=== PATIENT | male | born 1975 | race Caucasian/White ===

== ENCOUNTER → 2025-05-10 14:24 | Outpatient (BNVA) | payer SELFPAY | PROVIDERS: Visit Provider Emergency Medicine | DX: Z02.79 Encounter for issue of other medical certificate (principal) ==

== ENCOUNTER 2025-05-29 10:32 | Outpatient (AMB) | payer MEDICAID, SELFPAY ==
--- NOTE | 2025-05-29 10:39 | MHC.PC.OV ---
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 Intake Note: wants to discuss BP concerns Accompanied by: Self / Same As Patient Allergies No Known Allergies Allergy (Verified 05/29/25 10:39) Medication List - Last Reconciled 05/29/25 by Shaan Albright MD nifedipine ER 30 mg PO DAILY valsartan 320 mg PO DAILY Tobacco use date assessed: 05/29/25 Dental Screening Dental Screen Date: 05/29/25 Did you have a dental visit in the last 12 months?: Yes Was dental information given to patient?: Patient has dentist HPI HPI Comments History of Present Illness Details History of Present Illness The patient is a 49-year-old male presenting for a new patient visit and a physical exam with a primary concern of hypertension. He reports a history of hypertension for approximately 4 years, which began around the time of his COVID-19 vaccination. He was previously on three different medications, but they were ineffective. The only medication he has remaining is valsartan 320 mg, which he has not been taking consistently. At one point, his blood pressure was measured at 200/104 mmHg while he was not on medication. 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 He reports he is actively trying to lose weight and has successfully lost 10 pounds, going from 220 to 210 pounds. The patient denies any history of surgeries. The patient reports having a colonoscopy at [facility] approximately one year ago, with a recommendation for a repeat in 5 years. He has a potential allergy to mangoes if consumed in large quantities. Medical History: - Hypertension, diagnosed approximately 4 years ago. - Possible helena allergy. Surgical History: - The patient denies any history of surgical procedures. Medications: - Valsartan 320 mg for hypertension, taken inconsistently. - Unspecified vitamins. Family History: - Mother: History of diabetes and atrial fibrillation. - Father: History of coronary artery disease requiring double bypass surgery. - Parents (both): Heart conditions and thyroid issues. - Denies family history of cancer. Diagnostic Results: - A recent DFT physical revealed hypertension; specific values were not discussed. - A prior blood pressure reading was 200/104 mmHg. 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 - Alcohol Use: Reports rare alcohol consumption, about one beer a month. - Tobacco Use: Denies ever smoking. - Illicit Drug Use: Denies use of marijuana, heroin, or cocaine. - Diet: Reports avoiding added salt and processed foods. - Weight Management: The patient is actively trying to lose weight and reports a 10-pound weight loss. [facility] Medical History (Updated 05/29/25 @ 11:12 by Shaan Albright MD) Annual physical exam Hypertension Family History (Updated 05/29/25 @ 10:45 by Katerina Ordoñez CMA) Mother Hypertension Afib Father No problems noted. Social History Housing: House Patient Tobacco Use Status: Never used Tobacco service: No Current occupational status: unemployed Cognitive needs: No Hearing needs: No Vision needs: No Questionnaire PHQ-9 Over the last 2 weeks, how often have you been bothered by any of the following problems? 1. Little interest or pleasure in doing things: not at all 2. Feeling down, depressed, or hopeless: not at all 3. Trouble falling or staying asleep, or sleeping too much: not at all 4. Feeling tired or having little energy: not at all 5. Poor appetite or overeating: not at all 6. Feeling bad about yourself - or that you are a failure or have let yourself or your family down: not at all 7. Trouble concentrating on things, such as reading the newspaper or watching television: not at all 8. Moving or speaking so slowly that other people could have noticed. Or the opposite - being so fidgety or restless that you have been moving around a lot more than usual: not at all 9. Thoughts that you would be better off or of hurting yourself in some way: not at all Total score: 0 Depression Screening Interpretation: Negative Depression Screening Done: Yes 11367 - PHQ-9 Billing: Yes Source: Developed by Drs. Patrice Rice, Taina Diaz, Waqar Hirsch and colleagues, with an educational laura from [employer]. Thrive Questionnaire Date Thrive assessed: 05/29/25 I am a: Patient What is your living situation today?: I have a steady place to live Within the past 12 months, did the food you bought not last and you didn't have the money to get more?: Never true Within the past 12 months, did you worry whether your food would run out before you got money to buy more?: Never true Do you have trouble paying for medicines?: No Do you have trouble getting transportation to medical appointments?: No Do you have trouble paying your heating and electricity bill?: No Do you have trouble taking care of your child, family member or friend?: No Do you have trouble with day-to-day activities such as bathing, preparing meals, shopping, managing finances, etc.?: No Are you currently unemployed and looking for a job?: Yes Are you interested in more education?: No THRIVE Score: 0 AUDIT C Alcohol Use Questionnaire (AUDIT-C) 1. How often do you have a drink containing alcohol?: Monthly or less 2. How many drinks containing alcohol do you have on a typical day when you are drinking?: 1 or 2 3. How often do you have six or more drinks on one occasion?: Never Total Score: 1 Score Reviewed/Action Taken: Yes WAQAS-7 AMB Questionnaire WAQAS-7 Date WAQAS - 7 assessed: 05/29/25 Feeling nervous, anxious, or on edge: 0 = Not at all Not being able to stop or control worryin = Not at all Worrying too much about different things: 0 = Not at all Trouble relaxin = Not at all Being so restless that it is hard to sit still: 0 = Not at all Becoming easily annoyed or irritable: 0 = Not at all Feeling afraid as if something awful might happen: 0 = Not at all Total WAQAS-7 score (0-4 normal; 5-9 mild; 10-14 moderate; 15-21 severe): 0 Source: Developed by Drs. Patrice Rice, Taina Diaz, Waqar Hirsch and colleagues, with an educational laura from [employer]. WAQAS-7 Assessment Billing WAQAS-7 Assessment Tool: WAQAS-7 Assessment 66408 Review of Systems Narrative Review of Systems - Constitutional: Reports intentional weight loss. Denies unintentional weight loss or gain. - Neurological: Denies headaches. - Cardiovascular: Denies chest pain. - Respiratory: Denies cough. - Gastrointestinal: Denies nausea, vomiting, or diarrhea. All systems reviewed & are unremarkable except as reviewed in HPI and above Physical exam (Primary Care) Vital Signs: Last Vital Signs Temp 96.9 F 05/29/25 10:47 Pulse 70 05/29/25 10:47 BP 152/88 H 05/29/25 10:47 Pulse Ox 99 05/29/25 10:47 Oxygen Delivery Method Room Air 05/29/25 10:47 BMI result Body Mass Index 30.8 Tobacco/Smoking Status: Tobacco use Status Tobacco use date assessed 05/29/25 05/29/25 10:47 Patient Tobacco Use Status Never used Tobacco 05/29/25 10:47 PHQ-9: PHQ-9 Score PHQ-9: Total score 0 05/29/25 10:53 Depression Screening Interpretation: Negative Thrive Assessment: Date of Thrive Assessment Date Thrive assessed 05/29/25 05/29/25 10:47 Narrative Physical Exam General: +Alert and oriented, Well nourished, No acute distress. Eye: Pupils are equal, round and reactive to light, Intact accommodation, Extraocular movements are intact, Normal conjunctiva, Vision unchanged. HENT: Normocephalic, Atraumatic, Tympanic membranes are clear, Normal hearing, Oral mucosa is moist, No pharyngeal erythema, Ear canals patent. Respiratory: Lungs CTA bilaterally, No wheeze, Respirations are non-labored. Cardiovascular: Regular rate, Regular rhythm, S1 auscultated, S2 auscultated, No murmur, Good pulses equal in all extremities, Normal peripheral perfusion, No edema. Gastrointestinal: Soft, Non-tender, Non-distended, Normal bowel sounds, No organomegaly. Musculoskeletal: Normal range of motion, Normal strength, No tenderness, No swelling, No deformity, Normal gait. Integumentary: Warm, Dry, [place], Intact. Neurologic: Alert, Oriented, Normal sensory, Normal motor function, No focal defects, Cranial Nerves II-XII are grossly intact, Normal deep tendon reflexes. Psychiatric: Cooperative, Appropriate mood & affect, Normal judgment. Office Procedures Flu Questionnaire Does the patient have a severe egg allergy?: No Does the patient have severe life threatening allergies?: No Does the patient have a fever or illness today?: No Has the patient ever had Guillain-[place] Syndrome?: No Has the patient ever had any past reaction to a flu shot?: No Immunizations Fluarix [id number] (PF) 45 mcg (15 mcg x 3)/0.5 mL IM syringe Performing Provider: Shaan Albright MD [place] [facility] [place] [facility] [place] Documented (not given) by: Katerina Ordoñez CMA on 05/29/25 10:51 Reason Not Given: Patient Refused Coding Level of Care Code New Pt Level 3 (02738) New Pt Prev Care 40-64y(87684) Diagnoses Primary hypertension I10 Hypertension type: primary hypertension Annual physical exam Z00.00 Additional Codes WAQAS-7 Assessment Billing - WAQAS-7 Assessment Tool: WAQAS-7 Assessment 14724 ([id number]) PHQ-9 - 87766 - PHQ-9 Billing: Yes ([id number]) Comment [id number] Assessment & Plan Assessment & Plan (1) Hypertension: Comment: - The patient has uncontrolled hypertension, likely secondary to medication non-adherence. - His extensive family history of cardiac disease increases his cardiovascular risk. - The plan is to restart valsartan 320 mg daily and add nifedipine 30 mg daily. - He was instructed to monitor his blood pressure at home daily and watch for signs of hypotension. - Counseling was provided on lifestyle modifications, including a low-salt, low-fat diet, weight loss, and exercise. - Follow-up is scheduled in two weeks to review blood pressure logs and adjust medications as needed. Code(s): I10 - Essential (primary) hypertension Category: Medical Qualifiers: Hypertension type: primary hypertension Qualified Code(s): I10 - Essential (primary) hypertension (2) Annual physical exam: Comment: - The patient is due for age-appropriate screenings and risk factor management. - A comprehensive panel of blood work was ordered to evaluate cholesterol, among other values. - He is also due for a colonoscopy. - He reports having one last year with a 5-year follow-up interval and was instructed to obtain those records for his chart. Code(s): Z00.00 - Encounter for general adult medical examination without abnormal findings Category: Medical Plan: Health Maintenance - Ordered comprehensive blood work to check cholesterol levels and other markers due to significant family history of heart disease. - Patient is due for colon cancer screening; he reports a colonoscopy was done a year ago with a 5-year follow-up recommendation and will obtain records. - Discussed lifestyle modifications including a diet low in salt, fat, and processed foods, as well as weight loss and initiating an exercise regimen, to reduce cardiovascular risk. Patient was informed and verbally consented to the use of an ambient scribe for clinic note documentation during this visit. Vital signs reviewed. Comprehensive history, review of systems, and physical exam completed. Medications, allergies, and problem list reviewed and updated. Counseling provided on nutrition, regular exercise, sleep hygiene, and moderation of alcohol use. Discussed age-appropriate screenings (mammogram, colonoscopy, Pap, bone density) and immunizations (flu, COVID, shingles, Tdap). Screened for depression, fall risk, and home safety; no current concerns. Discussed stress management, dental and vision care, and importance of ongoing preventive follow-up. Routine labs ordered for metabolic and lipid screening. Patient educated on healthy lifestyle and agrees with the plan. Plan I discussed with the patient his diagnosis of hypertension and the importance of managing it, particularly given his strong family history of heart disease. We reviewed his medication history and non-adherence, and I have restarted him on valsartan 320 mg and added nifedipine 30 mg, sending both prescriptions to his pharmacy. I instructed him on how to monitor his blood pressure at home daily and to be aware of potential lightheadedness. I also emphasized the significant impact of lifestyle changes, including a healthy diet, weight loss, and exercise, on blood pressure control. We have ordered comprehensive blood work, discussed the need for colonoscopy screening, and scheduled a follow-up visit in two weeks to review his progress and make any necessary adjustments. Orders: Orders Complete Blood Count Auto Diff Today Z00.00 - Encounter for general adult medical examination without abnormal findings Comprehensive Met. Panel Today Z00.00 - Encounter for general adult medical examination without abnormal findings Hemoglobin A1c Today Z00.00 - Encounter for general adult medical examination without abnormal findings Hepatitis A,B,C Profile Today Z00.00 - Encounter for general adult medical examination without abnormal findings HIV Ab/Ag Today Z00.00 - Encounter for general adult medical examination without abnormal findings Lipid Panel Today Z00.00 - Encounter for general adult medical examination without abnormal findings Microalbumin, Random (w Creat) Today Z00.00 - Encounter for general adult medical examination without abnormal findings Vitamin D 25-OH Total Today Z00.00 - Encounter for general adult medical examination without abnormal findings Influenza [id number] Immunization Today Z23 - Encounter for immunization Syphilis Screen Today Z00.00 - Encounter for general adult medical examination without abnormal findings TSH reflex Free T4 Today Z00.00 - Encounter for general adult medical examination without abnormal findings Medications: New valsartan 320 mg PO DAILY 30 tabs 0RF nifedipine ER 30 mg PO DAILY 30 tabs 0RF Patient Instructions: - Restart taking your valsartan 320 mg medication every day. - Start taking the new medication, nifedipine 30 mg, once a day. - Take both medications in the morning. - Go to the lab [place] the [place] today to get your blood drawn. - Check your blood pressure with a home cuff every day, about one hour after taking your medications. - Let the office know if you start to feel lightheaded, as this could mean your blood pressure is dropping too much. - Eat a healthy diet low in salt, fats, and processed foods. - Start a regular exercise routine. - Please try to get the records of your last colonoscopy from [facility] for our files. - Schedule a follow-up appointment for a blood pressure check in 2 weeks.
[2025-05-29 10:47] VITALS: BP 152/88; PULSE 70; TEMP 36.1; O2SAT 99; BMI 30.8
== END 2025-05-29 11:05 | disposition home or self-care (01) ==
LOC: HO.HMCHD 10:33
PROVIDERS: Visit Provider Student in an Organized Health Care Education/Training Program
DX: Z00.00 Encounter for general adult medical examination without abnormal findings (principal); I10 Essential (primary) hypertension; Z23 Encounter for immunization

== ENCOUNTER 2025-05-29 11:09 | Outpatient (REF) | payer MEDICAID, SELFPAY ==
[2025-05-29 13:26] LABS: MANUAL DIFF FLAG NO
[2025-05-29 13:45] LABS: Hematocrit 40.8 % (42.0-52.0); Hemoglobin 13.8 g/dl (14.0-18.0); Imm Gran Abs Auto 0.00 X10*3/uL (0.00-0.03); Imm Gran Pct Auto 0.0 % (0.0-0.4); Lymphocytes Absolute Auto 2.1 X10*3/uL (1.2-4.9); Mean Corpuscular HGB Conc 33.8 g/dl (31.0-36.0); Mean Corpuscular Hemoglobin 31.8 pg (27.0-33.0); Mean Corpuscular Volume 94.0 fL (80.0-98.0); NRBC Abs Auto 0.000 X10*3/uL (0.0-0.012); NRBC Pct Auto 0.0 /100WBC (0.0-0.2); Platelet Count 231 X10*3/uL (160-400); Red Blood Count 4.34 X10*6/uL (4.60-5.80); White Blood Count 5.1 X10*3/uL (4.8-10.8)
[2025-05-29 14:10] LABS: Alanine Aminotransferase 35 U/L (0-40); Albumin Level 4.4 g/dL (3.5-5.0); Alkaline Phosphatase 39 U/L (39-117); Anion Gap 11 (12-20); Aspartate Amino Transferase 30 U/L (5-37); Blood Urea Nitrogen 16 mg/dL (9-16); Calcium 9.0 mg/dL (8.4-10.2); Carbon Dioxide 26 mmol/L (22-29); Chloride 108 mmol/L (96-108); Cholesterol 191 mg/dL (<200); Estimated Glomerular Filt Rate > 60; HDL Cholesterol 55 mg/dL (>40); Potassium 3.8 mmol/L (3.3-5.1); Sodium 141 mmol/L (135-145); Total Protein 6.9 g/dL (6.5-8.0); Triglycerides 53 mg/dL (<150)
[2025-05-29 14:27] LABS: Microalbum/Creatinine Ratio Ur 12.9 ug/mg cr (<30)
[2025-05-30 08:29] LABS: HBS Num1 134.12 mIU/mL (0-7.99); HBc Num1 0.03 S/CO (0.00-0.79); HBsAGNum1 0.38 S/CO (0.00-0.99); HIV Num 1 0.06 S/CO (0.00-0.99); Hepatitis A Antibody IgM 0.20 Index (0-0.79); Hepatitis B Surface Antigen Negative (Negative); ~HepC Num1 0.21 S/CO (0.00-0.79); ~Hepatitis A Antibody IgM Nonreactive (Nonreactive); ~Hepatitis B Surface Antibody REACTIVE (Nonreactive); ~Hepatitis C Antibody Nonreactive (Nonreactive)
[2025-05-30 08:32] LABS: Syphilis Screen Nonreactive (Nonreactive)
== END 2025-05-29 11:10 | disposition home or self-care (01) ==
LOC: HO.10HDL 11:09
PROVIDERS: Visit Provider Student in an Organized Health Care Education/Training Program
DX: Z00.00 Encounter for general adult medical examination without abnormal findings (principal); Z28.82 Immunization not carried out because of caregiver refusal; I10 Essential (primary) hypertension; Z79.899 Other long term (current) drug therapy
CPT/HCPCS: 36415; 80053; 80061; 82043; 82306; 82570; 83036; 84443; 85025; 86704; 86706; 86709; 86780; 86803; 87340; 87389; 96127; 99202; 99386

== ENCOUNTER 2025-06-16 08:22 | Outpatient (AMB) | payer OTHER, SELFPAY ==
--- NOTE | 2025-06-16 08:25 | MHC.PC.OV ---
Vital Signs 06/16/25 08:27 Height 5 ft 9 in Weight 209 lb BMI 30.9 BP 132/84 Blood Pressure Location Lt brachial Position Sitting Respiration 18 Pulse 71 Pulse Source Pulse Oximeter Temp 97.8 F Temp Source Temporal Artery Scan Pulse Oximetry (%) 98 Oxygen Delivery Method Room Air Intake Visit Reasons: 2 WK F/U BP Allergies No Known Allergies Allergy (Verified 06/16/25 08:25) Medication List - Last Reconciled 06/16/25 by Shaan Albright MD cholecalciferol (vitamin D3) 25 mcg PO DAILY multivitamin 1 tab PO DAILY nifedipine ER 30 mg PO DAILY valsartan 320 mg PO DAILY Tobacco use date assessed: 05/29/25 Dental Screening Dental Screen Date: 05/29/25 HPI HPI Comments History of Present Illness Details History of Present Illness The patient is a 49-year-old male presenting for a follow-up on hypertension. His blood pressure was previously in the 180s at a walk-in clinic and 152 at his last visit with this office. He is currently taking valsartan 320 mg and nifedipine 30 mg together in the morning. He reports home blood pressure readings of 160-170/100 mmHg in the mornings before taking his medication. He continues to experience feeling his pulse in his head, which is more noticeable at night. Recent blood work showed normal blood counts and electrolytes, but his LDL cholesterol was slightly elevated at 126. The patient has been making dietary changes, including eating once a day, reducing salt, and eliminating caffeine entirely. He also has a fungal nail infection and has been using an [id number]-[id number] topical treatment. He mentioned a past incident where he smashed a nail, which fell off and then grew back normally. He also reports year-round dry skin. Medical History: - Essential hypertension - Hyperlipidemia - Onychomycosis - History of finger trauma with a screw gun Medications: - Valsartan 320 mg taken once daily in the morning for hypertension. - Nifedipine 30 mg taken once daily in the morning for hypertension. Diagnostic Results: Labs: Recent blood work revealed a normal blood count and electrolyte panel. LDL cholesterol was 126 mg/dL. Social History - Diet: The patient reports eating one meal a day and has reduced salt intake. - Substance Use: He has eliminated caffeine from his diet entirely. 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 [facility] Medical History (Updated 06/16/25 @ 08:46 by Shaan Albright MD) Mixed hyperlipidemia Xerosis cutis Onychomycosis Annual physical exam Hypertension Family History (Updated 05/29/25 @ 10:45 by Katerina Ordoñez CMA) Mother Hypertension Afib Father No problems noted. Social History Housing: House Patient Tobacco Use Status: Never used Tobacco service: No Current occupational status: unemployed Cognitive needs: No Hearing needs: No Vision needs: No Questionnaire Thrive Questionnaire Date Thrive assessed: 05/29/25 AUDIT C Alcohol Use Questionnaire (AUDIT-C) 3. How often do you have six or more drinks on one occasion?: Never Total Score: 0 WAQAS-7 AMB Questionnaire WAQAS-7 Date WAQAS - 7 assessed: 05/29/25 Source: Developed by Drs. Patrice Rice, Taina Diaz, Waqar Hirsch and colleagues, with an educational laura from [employer]. Review of Systems Narrative Review of Systems - General: Denies any other concerns. - Cardiovascular: Reports feeling his pulse in his head, which is worse at night. - Integumentary: Reports a fungal nail infection and year-round dry skin. All systems reviewed & are unremarkable except as reviewed in HPI and above Physical exam (Primary Care) Vital Signs: Last Vital Signs Temp 97.8 F 06/16/25 08:27 Pulse 71 06/16/25 08:27 Resp 18 06/16/25 08:27 BP 132/84 06/16/25 08:27 Pulse Ox 98 06/16/25 08:27 Oxygen Delivery Method Room Air 06/16/25 08:27 BMI result Body Mass Index 30.9 Tobacco/Smoking Status: Tobacco use Status Tobacco use date assessed 05/29/25 06/16/25 08:30 Patient Tobacco Use Status Never used Tobacco 06/16/25 08:30 Thrive Assessment: Date of Thrive Assessment Date Thrive assessed 05/29/25 06/16/25 08:30 Narrative Physical Exam General: Alert and oriented, Well nourished, No acute distress. Eye: Pupils are equal, round and reactive to light, Intact accommodation, Extraocular movements are intact, Normal conjunctiva, Vision unchanged. HENT: Normocephalic, Atraumatic, Tympanic membranes are clear, Normal hearing, Oral mucosa is moist, No pharyngeal erythema, Ear canals patent. Respiratory: Lungs CTA bilaterally, No wheeze, Respirations are non-labored. Cardiovascular: Regular rate, Regular rhythm, S1 auscultated, S2 auscultated, No murmur, Good pulses equal in all extremities, Normal peripheral perfusion, No edema. Gastrointestinal: Soft, Non-tender, Non-distended, Normal bowel sounds, No organomegaly. Musculoskeletal: Normal range of motion, Normal strength, No tenderness, No swelling, No deformity, Normal gait. Integumentary: Warm, Dry, Amoret, Intact. Neurologic: Alert, Oriented, Normal sensory, Normal motor function, No focal defects, Cranial Nerves II-XII are grossly intact, Normal deep tendon reflexes. Psychiatric: Cooperative, Appropriate mood & affect, Normal judgment. Coding Level of Care Code Est Pt Level 4 (43670) Complex visit Add On G2211 Diagnoses Primary hypertension I10 Hypertension type: primary hypertension Onychomycosis B35.1 Xerosis cutis L85.3 Mixed hyperlipidemia E78.2 Assessment & Plan Assessment & Plan (1) Hypertension: Comment: - The patient's blood pressure has shown significant improvement, with an in-office reading of 132/84 mmHg, down from 180s previously. - He reports elevated home readings in the morning (160-170/100 mmHg) before his medication. - In order to achieve a goal of less than 130 mmHg, the plan is to increase nifedipine from 30 mg to 60 mg daily. - He was advised to monitor for lightheadedness and to return to the 30 mg dose if this occurs. - He is commended for his dietary changes, including reduced salt and caffeine cessation, which are contributing to his improvement. - Follow-up is scheduled in three months. Code(s): I10 - Essential (primary) hypertension Category: Medical Qualifiers: Hypertension type: primary hypertension Qualified Code(s): I10 - Essential (primary) hypertension (2) Onychomycosis: Comment: - The limitations of topical treatments and the risks of oral medications (liver side effects) were discussed. - The plan is to try a medicated lacquer, applied daily for seven days, then removed and reapplied, for a maximum duration of 48 weeks. Code(s): B35.1 - Tinea unguium Category: Medical (3) Xerosis cutis: Comment: - The patient reports year-round dry skin. - He was advised to use uusn-kyi-lfskyaz moisturizers Code(s): L85.3 - Xerosis cutis Category: Medical (4) Mixed hyperlipidemia: Comment: - Recent labs showed an LDL of 126. - Given his age, no pharmacotherapy will be initiated at this time; management will focus on continued dietary improvements. Code(s): E78.2 - Mixed hyperlipidemia Category: Medical Plan: Health Maintenance: - Blood pressure monitoring: Advised to continue checking blood pressure at home. - Dietary counseling: Encouraged to continue his low-salt diet and eating one meal per day for blood pressure and cholesterol management. - Substance use counseling: Advised to maintain caffeine abstinence. - Skin care: Advised to use qmlp-syj-rzeduea moisturizers for dry skin. Patient was informed and verbally consented to the use of an ambient scribe for clinic note documentation during this visit. Plan I reviewed the patient's blood pressure readings and commended him on the significant improvement, noting his in-office BP is now near normal at 132/84 mmHg. We discussed that despite this progress, his home readings are still elevated in the mornings before taking his medication. To achieve a blood pressure goal of under 130 mmHg, we decided to increase his nifedipine dose from 30 mg to 60 mg. I counseled him to monitor for symptoms of hypotension, such as lightheadedness, and to return to the 30 mg dose if these symptoms occur. I sent a 30-day prescription for the 60 mg dose to trial this change conservatively. His pulsatile tinnitus was also discussed, and I reassured him that this should improve with better BP control. Regarding his fungal nail infection, I explained the low efficacy of topical agents and the liver-related risks of oral medications. We agreed to try a medicated lacquer, and I detailed the application process, which involves daily application for a week, weekly removal with alcohol, and a treatment duration of up to 48 weeks. Finally, we reviewed his recent lab work, which showed a slightly elevated LDL of 126, and agreed to continue management with diet. He was instructed to follow up in 3 months to monitor his blood pressure. Medications: New nifedipine ER 60 mg PO DAILY 30 tabs 0RF Discontinued nifedipine ER Discontinued Reason: Doctor's Order 30 mg PO DAILY 30 tabs 0RF Patient Instructions: - Take your Valsartan 320 mg and new Nifedipine 60 mg dose together in the morning. - If you feel lightheaded or dizzy on the new Nifedipine dose, go back to taking the 30 mg dose you were on before and let our office know. - Continue to check your blood pressure at home and pay attention to your readings. - Continue with your diet changes, including eating once a day, reducing salt, and avoiding caffeine, as this is helping your blood pressure. - For your nail fungus, apply the prescribed medicated liquid like a nail ukrainian to the affected nail and nearby skin. - Apply it every day for seven days, then use an alcohol wipe to remove everything, and then start applying it daily again. You may need to do this for up to 48 weeks. - Use vwtq-rrw-ejxyxvh moisturizers for your dry skin. - Please schedule a follow-up appointment in three months to check on your blood pressure. - Do not hesitate to contact us if you have any questions or concerns.
[2025-06-16 08:27] VITALS: BP 132/84; PULSE 71; RESP 18; TEMP 36.6; O2SAT 98; BMI 30.9
== END 2025-06-16 08:46 | disposition home or self-care (01) ==
PROVIDERS: Visit Provider Student in an Organized Health Care Education/Training Program
DX: I10 Essential (primary) hypertension (principal); B35.1 Tinea unguium; L85.3 Xerosis cutis; E78.2 Mixed hyperlipidemia

== ENCOUNTER → 2025-06-16 08:22 | Outpatient (BNVA) | payer OTHER, SELFPAY | PROVIDERS: Visit Provider Student in an Organized Health Care Education/Training Program | DX: I10 Essential (primary) hypertension (principal); B35.1 Tinea unguium; L85.3 Xerosis cutis; E78.2 Mixed hyperlipidemia; Z79.899 Other long term (current) drug therapy | CPT/HCPCS: 99212 ==